=== PATIENT | male | born 1945 | race Caucasian/White ===

== ENCOUNTER 2021-02-15 09:44 | Inpatient (IN) ==
[2021-02-09 14:47] LABS: Basophils # 0.1 10*3/uL (0.0-0.2); Basophils % 0.9 % (0.0-0.8); Eosinophils # 0.2 10*3/uL (0.0-0.87); Eosinophils % 2.4 % (0.00-10.9); Hematocrit 23.7 VOL% (42.0-52.0); Hemoglobin 7.3 GM/DL (14.0-18.0); Immature Granulocytes % 0.9 %; Immature Granulocytes Absolute 0.09 #; Lymphocytes # 2.2 10*3/uL (1.4-4.0); Lymphocytes % 21.9 % (21.2-54.2); Mean Corpuscular HGB Conc 30.8 GM/DL (32-36); Mean Corpuscular Volume 86.5 FL (87-102); Mean Platelet Volume 10.7 FL (9.6-12.0); Monocytes % 9.2 % (1.7-12.7); Neutrophils % 64.7 % (38.7-73.9); Platelet Count 278 T/CUMM (130-400); Red Blood Count 2.74 MC/CUMM (3.8-5.5); Red Cell Distribution Width 14.1 % (9.3-17.3)
[2021-02-09 15:00] LABS: Calcium 8.7 MG/DL (8.5-10.1); Osmolality,Calculated 281.8 MOS/KG (273-304); Potassium 5.2 MMOL/L (3.5-5.1)
[~2021-02-15 09:44] MED LIST: GENTAMICIN INJ 160 MG in SODIUM CHLORIDE 0.9% 100 ML IV ONE; LACTATED RINGERS 1,000 ML IV SCH
[2021-02-15 10:11] LABS: Basophils # 0.1 10*3/uL (0.0-0.2); Basophils % 0.9 % (0.0-0.8); Eosinophils # 0.4 10*3/uL (0.0-0.87); Hematocrit 29.2 VOL% (42.0-52.0); Hemoglobin 9.1 GM/DL (14.0-18.0); Immature Granulocytes Absolute 0.11 #; Lymphocytes # 1.7 10*3/uL (1.4-4.0); Lymphocytes % 16.2 % (21.2-54.2); Mean Corpuscular HGB Conc 31.2 GM/DL (32-36); Mean Corpuscular Volume 88.2 FL (87-102); Mean Platelet Volume 10.5 FL (9.6-12.0); Monocytes % 8.7 % (1.7-12.7); Neutrophils % 69.2 % (38.7-73.9); Platelet Count 267 T/CUMM (130-400); Red Blood Count 3.31 MC/CUMM (3.8-5.5); Red Cell Distribution Width 14.8 % (9.3-17.3); White Blood Count 10.6 T/CUMM (4-12)
[2021-02-15 10:31] LABS: Alanine Aminotransferase 16 U/L (16-61); Albumin 3.4 G/DL (3.4-5.0); Alkaline Phosphatase 98 U/L (45-117); Aspartate Amino Transferase 7 U/L (0-37); Bilirubin,Total < 0.39 MG/DL (0.20-1.00); Blood Urea Nitrogen 41 MG/DL (7-18); Calcium 8.4 MG/DL (8.5-10.1); Carbon Dioxide 23 MMOL/L (21-32); Estimated Glom Filtration Rate 26 ML/MIN; Glucose 112 MG/DL (74-106); Osmolality,Calculated 287.5 MOS/KG (273-304); Potassium 4.7 MMOL/L (3.5-5.1); Sodium 139 MMOL/L (136-145); Total Protein 7.6 G/DL (6.4-8.2)
[2021-02-15] MEDS ORDERED: LIDOCAINE 2% TOP JELLY 20 ML VIAL INTRAURETH ONE (11:55)
[2021-02-15] MEDS ORDERED: propofoL 200 MG/20 ML VIAL IV ONE (12:55)
[2021-02-15] MEDS ORDERED: MIDAZOLAM 2 MG/2 ML VIAL ONE (12:55)
[2021-02-15] MEDS ORDERED: fentaNYL 100 MCG/2 ML VIAL ONE (12:55)
[2021-02-15] MEDS ORDERED: LIDOCAINE 2% 5 ML VIAL ONE (12:55)
[2021-02-15] MEDS ORDERED: ePHEDrine 50 MG/ML VIAL ONE (13:14)
[2021-02-15] MEDS ORDERED: ONDANSETRON 4 MG/2 ML VIAL ONE (13:27)
[2021-02-15] MEDS ORDERED: SEVOFLURANE 1 UNIT/15 MINUTE INH ONE ×2 (13:27→13:44)
[2021-02-15] MEDS ORDERED: oxyCODONE/ACETAMINOPHEN 5-325 MG TABLET PO PRN (13:51)
[2021-02-15] MEDS ORDERED: ONDANSETRON 4 MG/2 ML VIAL IV PRN (13:59)
[2021-02-15] MEDS ORDERED: diphenhydrAMINE 50 MG/1 ML VIAL IV PRN (13:59)
[2021-02-15] MEDS ORDERED: HYDROmorphone 2 MG/1 ML VIAL IV PRN (14:00)
[2021-02-15 14:34] LABS: Basophils # 0.1 10*3/uL (0.0-0.2); Basophils % 0.8 % (0.0-0.8); Eosinophils # 0.3 10*3/uL (0.0-0.87); Eosinophils % 3.7 % (0.00-10.9); Hematocrit 27.2 VOL% (42.0-52.0); Hemoglobin 8.4 GM/DL (14.0-18.0); Immature Granulocytes % 0.9 %; Immature Granulocytes Absolute 0.08 #; Lymphocytes # 1.8 10*3/uL (1.4-4.0); Lymphocytes % 21.3 % (21.2-54.2); Mean Corpuscular HGB Conc 30.9 GM/DL (32-36); Mean Corpuscular Volume 88.6 FL (87-102); Mean Platelet Volume 10.9 FL (9.6-12.0); Monocytes % 9.7 % (1.7-12.7); Neutrophils % 63.6 % (38.7-73.9); Platelet Count 217 T/CUMM (130-400); Red Blood Count 3.07 MC/CUMM (3.8-5.5); Red Cell Distribution Width 14.9 % (9.3-17.3); White Blood Count 8.6 T/CUMM (4-12)
[2021-02-15 14:48] LABS: Calcium 8.4 MG/DL (8.5-10.1); Osmolality,Calculated 283.7 MOS/KG (273-304); Potassium 4.8 MMOL/L (3.5-5.1)
[2021-02-15] MEDS: ACETAMINOPHEN 325 MG TABLET PO SCH ×2 (16:31→21:27)
[2021-02-15] MEDS: carvediloL 25 MG TABLET PO SCH (21:21)
[2021-02-15] MEDS: ATORVASTATIN 80 MG TABLET PO SCH (21:27)
[2021-02-15] MEDS: CIPROFLOXACIN 250 MG TABLET PO SCH (21:27)
[2021-02-16] MEDS: ACETAMINOPHEN 325 MG TABLET PO SCH ×4 (03:11→22:31)
[2021-02-16 06:15] LABS: Basophils # 0.1 10*3/uL (0.0-0.2); Basophils % 0.6 % (0.0-0.8); Eosinophils # 0.5 10*3/uL (0.0-0.87); Eosinophils % 4.4 % (0.00-10.9); Hematocrit 27.3 VOL% (42.0-52.0); Hemoglobin 8.6 GM/DL (14.0-18.0); Immature Granulocytes % 0.5 %; Immature Granulocytes Absolute 0.06 #; Lymphocytes # 1.1 10*3/uL (1.4-4.0); Lymphocytes % 9.3 % (21.2-54.2); Mean Corpuscular HGB Conc 31.5 GM/DL (32-36); Mean Corpuscular Volume 88.1 FL (87-102); Mean Platelet Volume 11.4 FL (9.6-12.0); Monocytes % 9.3 % (1.7-12.7); Neutrophils % 75.9 % (38.7-73.9); Platelet Count 234 T/CUMM (130-400); White Blood Count 11.7 T/CUMM (4-12)
[2021-02-16 06:32] LABS: Calcium 8.4 MG/DL (8.5-10.1); Osmolality,Calculated 288.3 MOS/KG (273-304); Potassium 5.5 MMOL/L (3.5-5.1)
[2021-02-16] MEDS: FAMOTIDINE 20 MG TABLET PO SCH (08:55)
[2021-02-16] MEDS: carvediloL 25 MG TABLET PO SCH ×2 (08:55→22:33)
[2021-02-16] MEDS: CIPROFLOXACIN 250 MG TABLET PO SCH ×2 (08:55→22:31)
[2021-02-16] MEDS: ATORVASTATIN 80 MG TABLET PO SCH (22:31)
[2021-02-17] MEDS: ACETAMINOPHEN 325 MG TABLET PO SCH ×4 (02:41→20:26)
[2021-02-17 05:18] LABS: Basophils # 0.1 10*3/uL (0.0-0.2); Basophils % 0.5 % (0.0-0.8); Eosinophils # 0.5 10*3/uL (0.0-0.87); Eosinophils % 4.5 % (0.00-10.9); Hematocrit 27.8 VOL% (42.0-52.0); Hemoglobin 8.5 GM/DL (14.0-18.0); Immature Granulocytes % 0.6 %; Immature Granulocytes Absolute 0.07 #; Lymphocytes # 1.5 10*3/uL (1.4-4.0); Lymphocytes % 12.3 % (21.2-54.2); Mean Corpuscular HGB Conc 30.6 GM/DL (32-36); Mean Corpuscular Volume 88.8 FL (87-102); Mean Platelet Volume 11.1 FL (9.6-12.0); Monocytes % 10.6 % (1.7-12.7); Neutrophils % 71.5 % (38.7-73.9); Platelet Count 242 T/CUMM (130-400); Red Blood Count 3.13 MC/CUMM (3.8-5.5); White Blood Count 11.8 T/CUMM (4-12)
[2021-02-17 05:34] LABS: Calcium 8.3 MG/DL (8.5-10.1); Osmolality,Calculated 283.5 MOS/KG (273-304); Potassium 4.4 MMOL/L (3.5-5.1)
[2021-02-17] MEDS: FAMOTIDINE 20 MG TABLET PO SCH (08:50)
[2021-02-17] MEDS: carvediloL 25 MG TABLET PO SCH ×2 (08:50→20:26)
[2021-02-17] MEDS: CIPROFLOXACIN 250 MG TABLET PO SCH ×2 (08:50→20:25)
[2021-02-17] MEDS: ATORVASTATIN 80 MG TABLET PO SCH (20:25)
[2021-02-18] MEDS: ACETAMINOPHEN 325 MG TABLET PO SCH ×4 (02:05→20:30)
[2021-02-18 05:12] LABS: Basophils # 0.1 10*3/uL (0.0-0.2); Basophils % 0.7 % (0.0-0.8); Eosinophils # 0.6 10*3/uL (0.0-0.87); Eosinophils % 5.9 % (0.00-10.9); Hematocrit 26.9 VOL% (42.0-52.0); Hemoglobin 8.4 GM/DL (14.0-18.0); Immature Granulocytes % 0.9 %; Immature Granulocytes Absolute 0.09 #; Lymphocytes # 1.7 10*3/uL (1.4-4.0); Lymphocytes % 16.4 % (21.2-54.2); Mean Corpuscular HGB Conc 31.2 GM/DL (32-36); Mean Corpuscular Volume 87.6 FL (87-102); Mean Platelet Volume 11.2 FL (9.6-12.0); Neutrophils % 66.1 % (38.7-73.9); Platelet Count 244 T/CUMM (130-400); Red Blood Count 3.07 MC/CUMM (3.8-5.5); Red Cell Distribution Width 15.1 % (9.3-17.3); White Blood Count 10.1 T/CUMM (4-12)
[2021-02-18 05:56] LABS: Calcium 8.7 MG/DL (8.5-10.1); Osmolality,Calculated 284.4 MOS/KG (273-304); Potassium 4.6 MMOL/L (3.5-5.1)
[2021-02-18] MEDS: FAMOTIDINE 20 MG TABLET PO SCH (09:00)
[2021-02-18] MEDS: carvediloL 25 MG TABLET PO SCH ×2 (09:00→20:31)
[2021-02-18] MEDS: CIPROFLOXACIN 250 MG TABLET PO SCH ×2 (09:00→20:31)
[2021-02-18] MEDS ORDERED: MIDAZOLAM 2 MG/2 ML VIAL ONE (10:14)
[2021-02-18] MEDS ORDERED: fentaNYL 100 MCG/2 ML VIAL ONE (10:28)
[2021-02-18] MEDS ORDERED: ePHEDrine 50 MG/ML VIAL ONE (10:29)
[2021-02-18] MEDS ORDERED: LACTATED RINGERS 1,000 ML IV SCH (10:30)
[2021-02-18] MEDS ORDERED: GENTAMICIN 80 MG/2 ML VIAL ONE (10:35)
[2021-02-18] MEDS ORDERED: SEVOFLURANE 1 UNIT/15 MINUTE INH ONE (12:10)
[2021-02-18 14:11] LABS: Basophils # 0.1 10*3/uL (0.0-0.2); Basophils % 0.6 % (0.0-0.8); Eosinophils # 0.2 10*3/uL (0.0-0.87); Eosinophils % 1.8 % (0.00-10.9); Hematocrit 29.7 VOL% (42.0-52.0); Hemoglobin 8.9 GM/DL (14.0-18.0); Immature Granulocytes Absolute 0.12 #; Lymphocytes % 7.9 % (21.2-54.2); Mean Corpuscular Volume 88.9 FL (87-102); Monocytes % 2.8 % (1.7-12.7); Neutrophils % 85.9 % (38.7-73.9); Platelet Count 271 T/CUMM (130-400); Red Blood Count 3.34 MC/CUMM (3.8-5.5); White Blood Count 12.4 T/CUMM (4-12)
[2021-02-18 14:28] LABS: Calcium 8.6 MG/DL (8.5-10.1); Osmolality,Calculated 278.8 MOS/KG (273-304); Potassium 5.2 MMOL/L (3.5-5.1)
[2021-02-18] MEDS: ATORVASTATIN 80 MG TABLET PO SCH (20:31)
[2021-02-19] MEDS: ACETAMINOPHEN 325 MG TABLET PO SCH ×4 (03:17→20:35)
[2021-02-19] MEDS: CIPROFLOXACIN 250 MG TABLET PO SCH (09:06)
[2021-02-19] MEDS: carvediloL 25 MG TABLET PO SCH ×2 (09:06→20:35)
[2021-02-19] MEDS: FAMOTIDINE 20 MG TABLET PO SCH (09:06)
[2021-02-19 09:27] LABS: Basophils # 0.1 10*3/uL (0.0-0.2); Basophils % 0.5 % (0.0-0.8); Eosinophils # 0.1 10*3/uL (0.0-0.87); Eosinophils % 0.7 % (0.00-10.9); Hematocrit 27.3 VOL% (42.0-52.0); Hemoglobin 8.3 GM/DL (14.0-18.0); Immature Granulocytes Absolute 0.15 #; Lymphocytes # 1.9 10*3/uL (1.4-4.0); Lymphocytes % 12.7 % (21.2-54.2); Mean Corpuscular HGB Conc 30.4 GM/DL (32-36); Mean Corpuscular Volume 87.8 FL (87-102); Mean Platelet Volume 10.8 FL (9.6-12.0); Monocytes % 7.9 % (1.7-12.7); Neutrophils % 77.2 % (38.7-73.9); Platelet Count 254 T/CUMM (130-400); Red Blood Count 3.11 MC/CUMM (3.8-5.5); Red Cell Distribution Width 15.2 % (9.3-17.3); White Blood Count 14.8 T/CUMM (4-12)
[2021-02-19 09:47] LABS: Calcium 8.5 MG/DL (8.5-10.1); Osmolality,Calculated 286.5 MOS/KG (273-304); Potassium 4.9 MMOL/L (3.5-5.1)
[2021-02-19] MEDS ORDERED: SODIUM CHLORIDE 0.9% 1,000 ML IV PRN (09:55)
[2021-02-19] MEDS: ATORVASTATIN 80 MG TABLET PO SCH (20:35)
[2021-02-19] MEDS: CIPROFLOXACIN 500 MG TABLET PO SCH (20:36)
[2021-02-20] MEDS: ACETAMINOPHEN 325 MG TABLET PO SCH ×4 (01:23→20:56)
[2021-02-20 05:28] LABS: Basophils # 0.1 10*3/uL (0.0-0.2); Basophils % 0.7 % (0.0-0.8); Eosinophils # 0.6 10*3/uL (0.0-0.87); Eosinophils % 5.1 % (0.00-10.9); Hematocrit 27.7 VOL% (42.0-52.0); Hemoglobin 8.9 GM/DL (14.0-18.0); Immature Granulocytes % 0.9 %; Lymphocytes % 17.4 % (21.2-54.2); Mean Corpuscular HGB Conc 32.1 GM/DL (32-36); Mean Corpuscular Volume 87.7 FL (87-102); Mean Platelet Volume 11.3 FL (9.6-12.0); Monocytes % 9.2 % (1.7-12.7); Neutrophils % 66.7 % (38.7-73.9); Platelet Count 253 T/CUMM (130-400); Red Blood Count 3.16 MC/CUMM (3.8-5.5); Red Cell Distribution Width 14.8 % (9.3-17.3); White Blood Count 11.4 T/CUMM (4-12)
[2021-02-20 05:44] LABS: Calcium 8.4 MG/DL (8.5-10.1); Osmolality,Calculated 285.5 MOS/KG (273-304); Potassium 4.8 MMOL/L (3.5-5.1)
[2021-02-20] MEDS: FAMOTIDINE 20 MG TABLET PO SCH (08:19)
[2021-02-20] MEDS: carvediloL 25 MG TABLET PO SCH ×2 (08:19→20:56)
[2021-02-20] MEDS: CIPROFLOXACIN 500 MG TABLET PO SCH ×2 (08:20→20:57)
[2021-02-20] MEDS ORDERED: SODIUM CHLORIDE 0.9% 1,000 ML IV SCH (12:00)
[2021-02-20] MEDS: ATORVASTATIN 80 MG TABLET PO SCH (20:57)
[2021-02-20] MEDS: SODIUM CHLORIDE 0.9% 1,000 ML IV SCH (21:12)
[2021-02-21] MEDS: ACETAMINOPHEN 325 MG TABLET PO SCH ×4 (01:36→21:39)
[2021-02-21 06:12] LABS: Basophils # 0.1 10*3/uL (0.0-0.2); Basophils % 0.7 % (0.0-0.8); Eosinophils # 0.7 10*3/uL (0.0-0.87); Eosinophils % 6.7 % (0.00-10.9); Hematocrit 28.8 VOL% (42.0-52.0); Immature Granulocytes % 1.1 %; Immature Granulocytes Absolute 0.11 #; Lymphocytes # 1.8 10*3/uL (1.4-4.0); Lymphocytes % 18.5 % (21.2-54.2); Mean Corpuscular HGB Conc 31.3 GM/DL (32-36); Mean Corpuscular Volume 89.2 FL (87-102); Mean Platelet Volume 11.2 FL (9.6-12.0); Monocytes % 10.4 % (1.7-12.7); Neutrophils % 62.6 % (38.7-73.9); Platelet Count 254 T/CUMM (130-400); Red Blood Count 3.23 MC/CUMM (3.8-5.5); Red Cell Distribution Width 14.9 % (9.3-17.3); White Blood Count 9.8 T/CUMM (4-12)
[2021-02-21 06:31] LABS: Calcium 8.3 MG/DL (8.5-10.1); Osmolality,Calculated 285.5 MOS/KG (273-304); Potassium 4.6 MMOL/L (3.5-5.1)
[2021-02-21] MEDS: CIPROFLOXACIN 500 MG TABLET PO SCH ×2 (09:20→21:39)
[2021-02-21] MEDS: FAMOTIDINE 20 MG TABLET PO SCH (09:21)
[2021-02-21] MEDS: carvediloL 25 MG TABLET PO SCH ×2 (09:21→21:39)
[2021-02-21] MEDS: SODIUM CHLORIDE 0.9% 1,000 ML IV SCH (09:24)
[2021-02-21] MEDS: ATORVASTATIN 80 MG TABLET PO SCH (21:39)
[2021-02-22] MEDS: ACETAMINOPHEN 325 MG TABLET PO SCH ×2 (03:11→09:26)
[2021-02-22 05:41] LABS: Basophils # 0.1 10*3/uL (0.0-0.2); Eosinophils # 0.6 10*3/uL (0.0-0.87); Eosinophils % 6.1 % (0.00-10.9); Hematocrit 29.2 VOL% (42.0-52.0); Hemoglobin 9.1 GM/DL (14.0-18.0); Immature Granulocytes Absolute 0.11 #; Mean Corpuscular HGB Conc 31.2 GM/DL (32-36); Mean Corpuscular Volume 87.7 FL (87-102); Mean Platelet Volume 11.2 FL (9.6-12.0); Monocytes % 9.4 % (1.7-12.7); Neutrophils % 63.5 % (38.7-73.9); Platelet Count 274 T/CUMM (130-400); Red Blood Count 3.33 MC/CUMM (3.8-5.5); White Blood Count 10.5 T/CUMM (4-12)
[2021-02-22 06:12] LABS: Calcium 8.6 MG/DL (8.5-10.1); Osmolality,Calculated 287.5 MOS/KG (273-304); Potassium 4.4 MMOL/L (3.5-5.1)
[2021-02-22 07:43] VITALS: BP 148/59
[2021-02-22] MEDS: CIPROFLOXACIN 500 MG TABLET PO SCH (09:26)
[2021-02-22] MEDS: FAMOTIDINE 20 MG TABLET PO SCH (09:26)
[2021-02-22] MEDS: carvediloL 25 MG TABLET PO SCH (09:26)
== END 2021-02-22 12:49 | disposition home or self-care (01) | DRG 669 ==
LOC: N.SDSINP 09:44 → N.OR 09:44 → N.SDSINP 09:45 → N.4E 14:48
PROVIDERS: ADMIT Surgery; ATTEND Surgery

== ENCOUNTER 2021-04-30 20:35 | Inpatient (IN) ==
[2021-04-30] MEDS ORDERED: ONDANSETRON 4 MG/2 ML VIAL IV ONE (21:28)
[2021-04-30] MEDS ORDERED: SODIUM CHLORIDE 0.9% 1,000 ML IV STA ×2 (21:29→23:43)
[2021-04-30 23:13] LABS: Basophils # 0.1 10*3/uL (0.0-0.2); Basophils % 0.5 % (0.0-0.8); Eosinophils # 0.1 10*3/uL (0.0-0.87); Eosinophils % 0.5 % (0.00-10.9); Hematocrit 32.6 VOL% (42.0-52.0); Hemoglobin 10.3 GM/DL (14.0-18.0); Immature Granulocytes % 3.2 %; Immature Granulocytes Absolute 0.46 #; Lymphocytes # 1.3 10*3/uL (1.4-4.0); Mean Corpuscular HGB Conc 31.6 GM/DL (32-36); Mean Platelet Volume 10.2 FL (9.6-12.0); Monocytes % 6.7 % (1.7-12.7); Neutrophils % 80.1 % (38.7-73.9); Platelet Count 381 T/CUMM (130-400); Red Blood Count 3.88 MC/CUMM (3.8-5.5); Red Cell Distribution Width 16.8 % (9.3-17.3); White Blood Count 14.3 T/CUMM (4-12)
[2021-04-30 23:30] LABS: Albumin 2.7 G/DL (3.4-5.0); Bilirubin,Total 0.4 MG/DL (0.20-1.00); Calcium 9.5 MG/DL (8.5-10.1); Osmolality,Calculated 276.5 MOS/KG (273-304); Potassium 4.8 MMOL/L (3.5-5.1); Total Protein 8.5 G/DL (6.4-8.2)
[2021-05-01 00:07] LABS: Bacteria,Urine Occasional /HPF (Few); Bilirubin,Urine Negative (Negative); Blood, Urine Large mg/dL (Negative); Glucose,Urine (UA) Negative (Negative); Ketones,Urine Negative (Negative); Nitrite,Urine Negative (Negative); Protein,Urine 30 MG/DL; RBC,Urine 113 /HPF (0-4); Urine Appearance Slightly Hazy (Clear); Urine Color Yellow (Yellow); Urine Urobilinogen < 2.0 EU/DL (0.2-1.0)
[2021-05-01] MEDS ORDERED: LEVOFLOXACIN INJ 500 MG/100 ML PREMIX IV ONE (00:22)
[2021-05-01] MEDS ORDERED: ACETAMINOPHEN 325 MG TABLET PO PRN (01:30)
[2021-05-01] MEDS ORDERED: ONDANSETRON 4 MG/2 ML VIAL IV PRN (01:30)
[2021-05-01] MEDS ORDERED: DEXTROSE 50% 25 GM/50 ML VIAL IV PRN (01:30)
[2021-05-01] MEDS ORDERED: GLUCAGON 1 MG VIAL IM PRN (01:30)
[2021-05-01] MEDS: SODIUM CHLORIDE 0.9% 1,000 ML IV SCH ×5 (03:18→23:20)
[2021-05-01] MEDS: cefTRIAXone 2,000 MG in SODIUM CHLORIDE 0.9% 100 ML IV SCH (03:18)
[2021-05-01 05:03] LABS: Basophils # 0.1 10*3/uL (0.0-0.2); Basophils % 0.7 % (0.0-0.8); Eosinophils # 0.1 10*3/uL (0.0-0.87); Eosinophils % 0.9 % (0.00-10.9); Hematocrit 34.2 VOL% (42.0-52.0); Hemoglobin 10.5 GM/DL (14.0-18.0); Immature Granulocytes % 2.9 %; Immature Granulocytes Absolute 0.35 #; Mean Corpuscular HGB Conc 30.7 GM/DL (32-36); Mean Corpuscular Volume 89.3 FL (87-102); Mean Platelet Volume 11.5 FL (9.6-12.0); Monocytes % 6.5 % (1.7-12.7); Platelet Count 272 T/CUMM (130-400); Red Blood Count 3.83 MC/CUMM (3.8-5.5); Red Cell Distribution Width 17.4 % (9.3-17.3); White Blood Count 12.3 T/CUMM (4-12)
[2021-05-01 06:25] LABS: Calcium 8.9 MG/DL (8.5-10.1); Potassium 4.2 MMOL/L (3.5-5.1)
[2021-05-01] MEDS: PANTOPRAZOLE 40 MG TABLET PO SCH (10:33)
[2021-05-01] MEDS: carvediloL 25 MG TABLET PO SCH ×2 (10:33→20:51)
[2021-05-01] MEDS: ASPIRIN CHEW 81 MG TABLET PO SCH (10:33)
[2021-05-01] MEDS: APIXABAN 2.5 MG TABLET PO SCH ×2 (10:34→20:51)
[2021-05-01] MEDS: ATORVASTATIN 80 MG TABLET PO SCH (20:51)
[2021-05-02] MEDS: cefTRIAXone 2,000 MG in SODIUM CHLORIDE 0.9% 100 ML IV SCH (01:49)
[2021-05-02] MEDS: ONDANSETRON 4 MG/2 ML VIAL IV SCH ×2 (09:49→20:53)
[2021-05-02] MEDS: ASPIRIN CHEW 81 MG TABLET PO SCH (10:18)
[2021-05-02] MEDS: carvediloL 25 MG TABLET PO SCH ×2 (10:18→20:53)
[2021-05-02] MEDS: PANTOPRAZOLE 40 MG TABLET PO SCH (10:18)
[2021-05-02] MEDS: APIXABAN 2.5 MG TABLET PO SCH ×2 (10:19→20:53)
[2021-05-02] MEDS: SODIUM CHLORIDE 0.9% 1,000 ML IV SCH ×2 (13:26→19:40)
[2021-05-02] MEDS: ZALEPLON 5 MG CAPSULE PO PRN (20:53)
[2021-05-02] MEDS: ATORVASTATIN 80 MG TABLET PO SCH (20:53)
[2021-05-03] MEDS: SODIUM CHLORIDE 0.9% 1,000 ML IV SCH ×3 (03:23→21:17)
[2021-05-03] MEDS: cefTRIAXone 2,000 MG in SODIUM CHLORIDE 0.9% 100 ML IV SCH (03:24)
[2021-05-03 05:37] LABS: Basophils # 0.1 10*3/uL (0.0-0.2); Basophils % 0.6 % (0.0-0.8); Eosinophils # 0.1 10*3/uL (0.0-0.87); Hematocrit 28.5 VOL% (42.0-52.0); Hemoglobin 9.1 GM/DL (14.0-18.0); Immature Granulocytes % 1.9 %; Immature Granulocytes Absolute 0.23 #; Lymphocytes # 1.3 10*3/uL (1.4-4.0); Lymphocytes % 10.8 % (21.2-54.2); Mean Corpuscular HGB Conc 31.9 GM/DL (32-36); Mean Corpuscular Volume 85.6 FL (87-102); Mean Platelet Volume 10.4 FL (9.6-12.0); Monocytes % 9.4 % (1.7-12.7); Neutrophils % 76.3 % (38.7-73.9); Platelet Count 352 T/CUMM (130-400); Red Blood Count 3.33 MC/CUMM (3.8-5.5); Red Cell Distribution Width 17.1 % (9.3-17.3); White Blood Count 12.1 T/CUMM (4-12)
[2021-05-03 06:01] LABS: Hypochromasia 1+; Microcytosis 1+
[2021-05-03 06:02] LABS: Acanthocytes Few; Ovalocytes Slight; Platelet Estimate Normal
[2021-05-03 06:04] LABS: Calcium 8.7 MG/DL (8.5-10.1); Osmolality,Calculated 282.5 MOS/KG (273-304); Potassium 3.9 MMOL/L (3.5-5.1)
[2021-05-03] MEDS: PANTOPRAZOLE 40 MG TABLET PO SCH (08:36)
[2021-05-03] MEDS: ONDANSETRON 4 MG/2 ML VIAL IV SCH ×2 (08:36→21:17)
[2021-05-03] MEDS: carvediloL 25 MG TABLET PO SCH ×2 (08:36→21:16)
[2021-05-03] MEDS: ASPIRIN CHEW 81 MG TABLET PO SCH (10:02)
[2021-05-03] MEDS: APIXABAN 2.5 MG TABLET PO SCH (10:02)
[2021-05-03] MEDS ORDERED: guaiFENesin 200 MG/10 ML UDCUP PO PRN (11:02)
[2021-05-03] MEDS ORDERED: chlorproMAZINE INJ 50 MG in SODIUM CHLORIDE 0.9% 100 ML IV PRN (11:02)
[2021-05-03] MEDS ORDERED: ACETAMINOPHEN 325 MG TABLET PO PRN (11:02)
[2021-05-03] MEDS ORDERED: traMADol 50 MG TABLET PO PRN (11:02)
[2021-05-03] MEDS ORDERED: PROMETHAZINE INJ 25 MG in SODIUM CHLORIDE 0.9% 50 ML IV PRN (11:02)
[2021-05-03] MEDS ORDERED: MAGNESIUM HYDROXIDE SUSP 30 ML UDCUP PO PRN (11:02)
[2021-05-03] MEDS ORDERED: LOPERAMIDE 2 MG CAPSULE PO PRN ×2 (11:02)
[2021-05-03] MEDS ORDERED: BENZTROPINE 2 MG/2 ML AMP IV PRN (11:02)
[2021-05-03] MEDS ORDERED: ONDANSETRON 4 MG/2 ML VIAL IV PRN (11:02)
[2021-05-03] MEDS ORDERED: LACTULOSE 20 GM/30 ML UDCUP PO PRN (11:02)
[2021-05-03] MEDS ORDERED: MYLANTA/LIDO VISC 2:1 300 ML BOTTLE SWISH/SWAL PRN (11:02)
[2021-05-03] MEDS ORDERED: chlorproMAZINE 25 MG TABLET PO PRN (11:02)
[2021-05-03] MEDS ORDERED: diphenhydrAMINE CAP 25 MG CAPSULE PO PRN (11:02)
[2021-05-03] MEDS ORDERED: ALUMINUM/MAGNES/SIMETH MAX STR 30 ML UDCUP PO PRN (11:02)
[2021-05-03] MEDS ORDERED: MYLANTA/LIDO VISC 2:1 300 ML BOTTLE SWISH/SPIT PRN (11:02)
[2021-05-03] MEDS ORDERED: chlorproMAZINE INJ 25 MG in SODIUM CHLORIDE 0.9% 100 ML IV PRN (11:02)
[2021-05-03] MEDS: LINEZOLID INJ 600 MG/300 ML PREMIX IV SCH (14:48)
[2021-05-03] MEDS: ATORVASTATIN 80 MG TABLET PO SCH (21:16)
[2021-05-03] MEDS: TEMAZEPAM 7.5 MG CAPSULE PO PRN ×2 (21:16→23:13)
[2021-05-03] MEDS: ALPRAZolam 0.25 MG TABLET PO PRN (23:12)
[2021-05-04] MEDS: LINEZOLID INJ 600 MG/300 ML PREMIX IV SCH ×2 (02:20→14:02)
[2021-05-04 06:25] LABS: Basophils # 0.1 10*3/uL (0.0-0.2); Basophils % 0.6 % (0.0-0.8); Eosinophils # 0.3 10*3/uL (0.0-0.87); Eosinophils % 2.5 % (0.00-10.9); Hematocrit 27.2 VOL% (42.0-52.0); Hemoglobin 8.6 GM/DL (14.0-18.0); Immature Granulocytes % 1.7 %; Immature Granulocytes Absolute 0.18 #; Lymphocytes # 1.2 10*3/uL (1.4-4.0); Lymphocytes % 11.2 % (21.2-54.2); Mean Corpuscular HGB Conc 31.6 GM/DL (32-36); Mean Corpuscular Volume 85.3 FL (87-102); Mean Platelet Volume 10.3 FL (9.6-12.0); Monocytes % 10.3 % (1.7-12.7); Neutrophils % 73.7 % (38.7-73.9); Platelet Count 309 T/CUMM (130-400); Red Blood Count 3.19 MC/CUMM (3.8-5.5); White Blood Count 10.7 T/CUMM (4-12)
[2021-05-04 06:31] LABS: INR 1.1; PT Patient Result 11.9 SECS (10.5-12.0)
[2021-05-04 06:33] LABS: Calcium 8.3 MG/DL (8.5-10.1); Osmolality,Calculated 276.8 MOS/KG (273-304); Potassium 3.6 MMOL/L (3.5-5.1)
[2021-05-04] MEDS: carvediloL 25 MG TABLET PO SCH ×2 (09:09→21:39)
[2021-05-04] MEDS: PANTOPRAZOLE 40 MG TABLET PO SCH (09:09)
[2021-05-04] MEDS: SODIUM CHLORIDE 0.9% 1,000 ML IV SCH ×3 (09:14→21:38)
[2021-05-04] MEDS: ONDANSETRON 4 MG/2 ML VIAL IV SCH ×2 (09:14→21:38)
[2021-05-04] MEDS: ASPIRIN CHEW 81 MG TABLET PO SCH (12:00)
[2021-05-04] MEDS: ATORVASTATIN 80 MG TABLET PO SCH (21:39)
[2021-05-04] MEDS: ZALEPLON 5 MG CAPSULE PO PRN (21:39)
[2021-05-04] MEDS: ALPRAZolam 0.25 MG TABLET PO PRN (21:39)
[2021-05-05] MEDS: SODIUM CHLORIDE 0.9% 1,000 ML IV SCH ×3 (03:07→21:54)
[2021-05-05] MEDS: LINEZOLID INJ 600 MG/300 ML PREMIX IV SCH ×2 (03:07→14:34)
[2021-05-05 07:16] LABS: Basophils # 0.1 10*3/uL (0.0-0.2); Basophils % 0.6 % (0.0-0.8); Eosinophils # 0.4 10*3/uL (0.0-0.87); Eosinophils % 3.5 % (0.00-10.9); Hematocrit 27.1 VOL% (42.0-52.0); Hemoglobin 8.5 GM/DL (14.0-18.0); Lymphocytes # 1.2 10*3/uL (1.4-4.0); Lymphocytes % 11.8 % (21.2-54.2); Mean Corpuscular HGB Conc 31.4 GM/DL (32-36); Mean Platelet Volume 10.3 FL (9.6-12.0); Monocytes % 7.2 % (1.7-12.7); Neutrophils % 75.9 % (38.7-73.9); Platelet Count 341 T/CUMM (130-400); Red Blood Count 3.19 MC/CUMM (3.8-5.5); Red Cell Distribution Width 17.1 % (9.3-17.3); White Blood Count 9.9 T/CUMM (4-12)
[2021-05-05 07:18] LABS: PT Patient Result 11.6 SECS (10.5-12.0)
[2021-05-05 07:36] LABS: Calcium 8.3 MG/DL (8.5-10.1); Osmolality,Calculated 281.4 MOS/KG (273-304); Potassium 3.5 MMOL/L (3.5-5.1)
[2021-05-05] MEDS ORDERED: fentaNYL 100 MCG/2 ML VIAL IV ONE (09:00)
[2021-05-05] MEDS ORDERED: MIDAZOLAM 2 MG/2 ML VIAL IV ONE (09:00)
[2021-05-05] MEDS: ONDANSETRON 4 MG/2 ML VIAL IV SCH ×2 (09:30→21:29)
[2021-05-05] MEDS: carvediloL 25 MG TABLET PO SCH ×2 (10:17→21:26)
[2021-05-05] MEDS: SODIUM CHLORIDE 0.45% 1,000 ML IV SCH ×2 (10:21→21:25)
[2021-05-05] MEDS: PANTOPRAZOLE 40 MG TABLET PO SCH (10:28)
[2021-05-05] MEDS ORDERED: CLINDAMYCIN INJ 900 MG/50 ML PREMIX IV ONE (15:26)
[2021-05-05] MEDS: ZALEPLON 5 MG CAPSULE PO PRN (21:26)
[2021-05-05] MEDS: ATORVASTATIN 80 MG TABLET PO SCH (21:28)
[2021-05-06] MEDS: LINEZOLID INJ 600 MG/300 ML PREMIX IV SCH ×2 (01:20→14:22)
[2021-05-06] MEDS: SODIUM CHLORIDE 0.9% 1,000 ML IV SCH ×3 (03:12→19:30)
[2021-05-06 05:30] LABS: Basophils # 0.1 10*3/uL (0.0-0.2); Basophils % 0.6 % (0.0-0.8); Eosinophils # 0.4 10*3/uL (0.0-0.87); Eosinophils % 4.3 % (0.00-10.9); Hematocrit 29.7 VOL% (42.0-52.0); Immature Granulocytes Absolute 0.09 #; Lymphocytes # 1.4 10*3/uL (1.4-4.0); Lymphocytes % 15.9 % (21.2-54.2); Mean Corpuscular HGB Conc 30.3 GM/DL (32-36); Mean Corpuscular Volume 87.1 FL (87-102); Mean Platelet Volume 10.7 FL (9.6-12.0); Monocytes % 8.2 % (1.7-12.7); Platelet Count 313 T/CUMM (130-400); Red Blood Count 3.41 MC/CUMM (3.8-5.5); Red Cell Distribution Width 17.1 % (9.3-17.3); White Blood Count 8.9 T/CUMM (4-12)
[2021-05-06 05:41] LABS: Osmolality,Calculated 277.5 MOS/KG (273-304); Potassium 3.4 MMOL/L (3.5-5.1)
[2021-05-06] MEDS ORDERED: CLINDAMYCIN INJ 900 MG/50 ML PREMIX IV ONE (06:00)
[2021-05-06] MEDS: PANTOPRAZOLE 40 MG TABLET PO SCH (09:11)
[2021-05-06] MEDS: carvediloL 25 MG TABLET PO SCH ×2 (09:11→20:50)
[2021-05-06] MEDS ORDERED: POTASSIUM CHLORIDE 20 MEQ TABLET PO ONE (09:16)
[2021-05-06] MEDS ORDERED: propofoL 200 MG/20 ML VIAL IV ONE (10:00)
[2021-05-06] MEDS ORDERED: ETOMIDATE 40 MG/20 ML VIAL IV ONE (10:00)
[2021-05-06] MEDS ORDERED: LACTATED RINGERS 1,000 ML IV SCH (10:00)
[2021-05-06] MEDS ORDERED: SODIUM CHLORIDE 0.9% 100 ML IV ONE (10:01)
[2021-05-06] MEDS ORDERED: MIDAZOLAM 2 MG/2 ML VIAL ONE (10:01)
[2021-05-06] MEDS ORDERED: fentaNYL 100 MCG/2 ML VIAL ONE (10:01)
[2021-05-06] MEDS ORDERED: LIDOCAINE 2% 5 ML VIAL ONE (10:01)
[2021-05-06] MEDS ORDERED: ONDANSETRON 4 MG/2 ML VIAL ONE (10:01)
[2021-05-06] MEDS ORDERED: LIDOCAINE 1%/EPI INJ 20 ML VIAL ONE (10:10)
[2021-05-06] MEDS ORDERED: BUPIVACAINE MPF 0.25% 30 ML VIAL ONE (10:11)
[2021-05-06] MEDS ORDERED: HEPARIN 5,000 UNIT/1 ML VIAL ONE (10:11)
[2021-05-06] MEDS: ONDANSETRON 4 MG/2 ML VIAL IV SCH ×2 (10:33→20:50)
[2021-05-06] MEDS ORDERED: TISSUE ADHESIVE 1 EACH APPLICATOR TOP ONE (10:50)
[2021-05-06] MEDS: hydrALAZINE 20 MG/1 ML VIAL IV PRN (16:17)
[2021-05-06] MEDS: SODIUM CHLORIDE 0.45% 1,000 ML IV SCH (19:26)
[2021-05-06] MEDS: TEMAZEPAM 7.5 MG CAPSULE PO PRN (20:50)
[2021-05-06] MEDS: ATORVASTATIN 80 MG TABLET PO SCH (20:50)
[2021-05-07] MEDS: LINEZOLID INJ 600 MG/300 ML PREMIX IV SCH ×2 (01:26→13:43)
[2021-05-07 04:57] LABS: Basophils # 0.1 10*3/uL (0.0-0.2); Basophils % 0.6 % (0.0-0.8); Eosinophils # 0.4 10*3/uL (0.0-0.87); Eosinophils % 4.2 % (0.00-10.9); Hematocrit 26.2 VOL% (42.0-52.0); Hemoglobin 8.2 GM/DL (14.0-18.0); Immature Granulocytes Absolute 0.09 #; Lymphocytes # 0.9 10*3/uL (1.4-4.0); Lymphocytes % 10.3 % (21.2-54.2); Mean Corpuscular HGB Conc 31.3 GM/DL (32-36); Mean Corpuscular Volume 85.6 FL (87-102); Mean Platelet Volume 10.3 FL (9.6-12.0); Monocytes % 7.9 % (1.7-12.7); Platelet Count 316 T/CUMM (130-400); Red Blood Count 3.06 MC/CUMM (3.8-5.5); White Blood Count 8.8 T/CUMM (4-12)
[2021-05-07 05:18] LABS: Calcium 8.4 MG/DL (8.5-10.1); Osmolality,Calculated 277.5 MOS/KG (273-304); Potassium 3.7 MMOL/L (3.5-5.1)
[2021-05-07] MEDS: PANTOPRAZOLE 40 MG TABLET PO SCH (09:19)
[2021-05-07] MEDS: carvediloL 25 MG TABLET PO SCH ×2 (09:19→20:33)
[2021-05-07] MEDS: ONDANSETRON 4 MG/2 ML VIAL IV SCH ×2 (09:21→20:33)
[2021-05-07] MEDS: hydrALAZINE 20 MG/1 ML VIAL IV PRN (13:46)
[2021-05-07] MEDS: SODIUM CHLORIDE 0.45% 1,000 ML IV SCH (18:40)
[2021-05-07] MEDS: ATORVASTATIN 80 MG TABLET PO SCH (20:33)
[2021-05-07] MEDS: SODIUM CHLORIDE 0.9% 1,000 ML IV SCH ×2 (20:52→20:56)
[2021-05-07] MEDS: TEMAZEPAM 7.5 MG CAPSULE PO PRN (22:08)
[2021-05-08] MEDS: LINEZOLID INJ 600 MG/300 ML PREMIX IV SCH
[2021-05-08 05:44] LABS: Basophils # 0.1 10*3/uL (0.0-0.2); Basophils % 0.7 % (0.0-0.8); Eosinophils # 0.4 10*3/uL (0.0-0.87); Eosinophils % 4.6 % (0.00-10.9); Hematocrit 26.2 VOL% (42.0-52.0); Hemoglobin 8.5 GM/DL (14.0-18.0); Immature Granulocytes % 0.8 %; Immature Granulocytes Absolute 0.06 #; Lymphocytes # 1.3 10*3/uL (1.4-4.0); Lymphocytes % 16.9 % (21.2-54.2); Mean Corpuscular HGB Conc 32.4 GM/DL (32-36); Mean Corpuscular Volume 85.1 FL (87-102); Mean Platelet Volume 10.4 FL (9.6-12.0); Platelet Count 293 T/CUMM (130-400); Red Blood Count 3.08 MC/CUMM (3.8-5.5); White Blood Count 7.7 T/CUMM (4-12)
[2021-05-08 06:10] LABS: Calcium 8.7 MG/DL (8.5-10.1); Osmolality,Calculated 273.8 MOS/KG (273-304); Potassium 3.7 MMOL/L (3.5-5.1)
[2021-05-08 08:55] VITALS: BP 156/69
[2021-05-08] MEDS: carvediloL 25 MG TABLET PO SCH (09:46)
[2021-05-08] MEDS: PANTOPRAZOLE 40 MG TABLET PO SCH (09:46)
[2021-05-08] MEDS: ONDANSETRON 4 MG/2 ML VIAL IV SCH (09:49)
[2021-05-08] MEDS ORDERED: HEPARIN LOCK FLUSH 500 UNIT/5 ML SYRINGE IV ONE (11:06)
[2021-05-08] MEDS: SODIUM CHLORIDE 0.9% 1,000 ML IV SCH ×2 (12:07→12:08)
[2021-05-08] MEDS: SODIUM CHLORIDE 0.45% 1,000 ML IV SCH (12:08)
== END 2021-05-08 11:50 | disposition home or self-care (01) | DRG 674 ==
LOC: N.ED 20:35 → SUATTDRO 05-01 01:30 → N.EDINP 05-01 01:30 → N.4E 05-01 02:34
PROVIDERS: ADMIT Internal Medicine; ATTEND Internal Medicine Nephrology